=== PATIENT | male | born 1950 | race Caucasian/White ===

== ENCOUNTER → 2016-05-19 | Outpatient (CLI) | payer MEDICARE ==
[2016-01-13 11:00] VITALS: BP 137/89
[~2016-05-19] MED LIST: ASPI-482 PO; ASPI325T4 PO; FAMO20TA5 PO; FERR-26 PO; HYDR12.53 PO; IBUP-1027 PO; IOHEXOL 180 MG/ML 10 ML VIAL. ONE; ISOS10TA4 PO; METO25TA9 PO; MULT1TAB52 PO; Oxycodone Hcl/Acetaminophen PO; PROP150T2 PO; PROP225T2 PO; SIMV20TA3 PO; methylPREDNISolone ACETATE 40 MG/ML VIAL. ONE; methylPREDNISolone ACETATE 80 MG/ML VIAL. ONE
--- NOTE | 2016-05-20 01:26 | PAIN ---
DATE OF SERVICE: 05/19/2016 INITIAL CONSULTATION CHIEF COMPLAINT: Neck and bilateral shoulder and upper extremity pain. HISTORY OF PRESENT ILLNESS: The patient is a 65-year-old male, who presents with history of pain in the base of the neck and shoulders bilaterally for about 5 months or so, not a result of any specific injury or accident he is aware of, but it is increasing with time ____, constant pain across the base of the neck and shoulders causing headaches, radiating to bilateral shoulders and into the arms on occasion, but not at all times. The patient reports it is not ____. He has some tingling sensation, slightly more on the right than the left, but present bilaterally, most of the pain is in the base of the neck and shoulders was constant, sharp and aching, changes during the day, worse with activity, worse with standing or walking, worse with using his upper extremities or reaching over his head and again repetitive motions above his head as well. The patient reports it wakes him from sleep about once at night, but not every night. The patient reports it does not affect his bowel or bladder control or his ability to walk. He did try physical therapy, which he thought was not helpful with his neck. He is still doing some stretching exercises on his own, but only very infrequently. The patient reports no loss of motor function, but significant fatigability in the shoulders with any activity, especially drive a car. The patient reports disability rate from 0-10, 10 being the worst, 5 with family and home responsibilities, 3 with recreation, 3 with occupation, 4 with self-care, 0 with social activities, sexual behavior life support activities. The patient did have MRI scan of the cervical spine dated 05/02/2016 showing a congenitally moderate canal with disk space narrowing most marked at C4-C5, moderate posterior ridging and spurring causing moderate canal narrowing and mild cord deformity with mild to moderate bilateral neural foraminal narrowing at C4-C5 tiny disk osteophyte complex, essentially without cord deformity C3-C4 and congenitally moderate canal without lateralizing disk protrusions seen. PAST MEDICAL HISTORY: Significant for hypertension, atrial fibrillation, coronary artery disease, dizziness, headaches, peripheral neuropathy in the feet and arthritis. PREVIOUS SURGERY: Includes laparoscopic cholecystectomy and coronary artery bypass grafting in 12/2015. CURRENT MEDICATIONS: Include Advil, hydrochlorothiazide, multivitamins, metoprolol, propafenone, simvastatin and daily aspirin. ALLERGIES: THE PATIENT IS ALLERGIC TO CARDIZEM. FAMILY HISTORY: Significant for heart disease as well. SOCIAL HISTORY: The patient does not smoke, does not drink alcohol, is , lives with his spouse. No children living at home, lives locally in [place], [place]. REVIEW OF SYSTEMS: The patient's review of systems is positive for those items mentioned in history of present illness. All systems reviewed and otherwise negative. It is complete, full and well documented on the patient's chart. PHYSICAL EXAMINATION: VITAL SIGNS: The patient's blood pressure 133/77, pulse 58, respirations 18, temperature is 98.2 degrees Fahrenheit, height is 5 feet 10 inches, weighs 229 pounds. GENERAL: The patient is awake, alert, oriented, appropriate, very pleasant demeanor. HEENT: Head shows normocephalic, atraumatic. Extraocular movements are intact and symmetrical. Oral cavity shows mucous membranes moist and pink. Dentition is intact. NECK: Shows anterior throat supple without palpable lymphadenopathy noted. Swallow reflex is symmetrical. CHEST: Shows normal on inspection. Breath sounds clear to auscultation bilaterally, shows well-healed surgical scar in the midline from previous sternotomy. HEART: Shows S1, S2 clear. No murmurs auscultated. ABDOMEN: Soft, obese, nontender, nondistended. No palpable organomegaly noted. No new rebound or guarding demonstrated. BACK: Shows spine grossly midline. Normal appearing cervical lordotic curvature, thoracic kyphotic curvature, and lumbar lordotic curvature. No previous bruises, lesions, rashes or scars are noted. The patient's cervical paraspinous muscle shows some moderate tenderness with palpation in the middle and severe tenderness with the inferior aspect of the cervical paraspinous musculature with palpation bilaterally without specific trigger points or radiation, but significant pain and radiation bilaterally in the trapezius musculature centrally and laterally. The patient shows good rotational motion of cervical spine, both laterally greater than 45 degrees, close to 90 degrees well as full extension and full forward flexion without significant ____ limitation, but tender with extension only with pain reported in the base of the neck bilaterally. The patient's upper extremities showed deep tendon reflexes at 2+ in the biceps and triceps tendons. Motor exam is strong with regulatory analyst strength rated at 5/5 as is biceps and triceps flexion and symmetrical. Shoulder shrug is strong and intact without loss of strength on resistance, but with moderate pain reported in the base of the neck bilaterally also abduction of the shoulder to 90 degrees with resistance shows some pain reported in the base of the neck bilaterally as well. No radiation. IMPRESSION: 1. This is a 65-year-old male with approximately a 5-month history of increasing pain base of the neck, upper extremities and shoulders as noted. 2. MRI scan as noted. 3. History of coronary artery disease. 4. Atrial fibrillation. 5. Arthritis. PLAN: Options were discussed with the patient including conservative medical management, physical therapy, interventional techniques. He would like to pursue interventional techniques. We discussed a cervical epidural steroid injection using description as well as anatomical models to describe the procedure. Risks were then discussed including, but not limited to bleeding, infection, possibility of epidural hematoma, subsequent neurologic compromise, dural puncture, headaches, spinal cord and/or nerve damage, side effects of steroid medications and poor results regarding pain control. The patient understands and wishes to proceed. The patient will return to clinic in approximately 2 weeks for followup, was counseled on return appointment, activity level and side effects to be aware of. DIAGNOSES: Cervical radiculopathy with cervical degenerative disk disease and cervicalgia. PROCEDURE: Cervical epidural steroid injection in translaminar approach at the C6-C7 level using C-arm fluoroscopic guidance under sterile prep and drape, using local anesthetic. Medications injected is 120 mg of Depo-Medrol plus 5 mL preservative-free normal saline and 2 mL of Isovue for contrast. CONDITION AT DISCHARGE: Stable. The patient tolerated procedure well, had no complications. SD FLORES MD DR: RAMA/trini JOB#: [id number] / [id number]
== END ==
LOC: PNCL 09:09
PROVIDERS: ATTEND Anesthesiology
DX: M50.123 Cervical disc disorder at C6-C7 level with radiculopathy (principal); I25.10 Atherosclerotic heart disease of native coronary artery without angina pectoris; I48.91 Unspecified atrial fibrillation; M19.90 Unspecified osteoarthritis, unspecified site
CPT/HCPCS: 62321; J1030; J1040

== ENCOUNTER → 2016-06-02 | Outpatient (CLI) | payer MEDICARE ==
[2016-01-13 11:00] VITALS: BP 137/89
--- NOTE | 2016-06-02 20:42 | PN ---
DATE: 06/02/2016 DIAGNOSES: Cervical radiculopathy with cervical degenerative disk disease and cervicalgia. HISTORY OF PRESENT ILLNESS: The patient is a 65-year-old male who returns for followup status post cervical epidural steroid injection x 1. The patient reports about 10% improvement in the pain in the neck and in the bilateral shoulders and upper extremities. The patient reports the arms and shoulders are better, but still significant pain in the neck itself, more on the right of midline in the base of the neck, was a nagging dull aching pain that is constant. The patient reports anywhere from a 1 to a 6 on a scale 10, currently a 4 on a scale of 10. The patient reports no new motor or sensory deficits, no new problems, but still significant pain is noted. PHYSICAL EXAMINATION: VITAL SIGNS: The patient's blood pressure 124/70, pulse ____, respirations are 18, temperature is 98.0 degrees Fahrenheit. Height is 5 feet 10 inches, weighs 225 pounds. GENERAL: The patient is awake, alert, oriented, appropriate, very pleasant demeanor. HEENT: Head shows normocephalic, atraumatic. Extraocular movements are intact, symmetrical. Oral cavity, mucous membranes are moist and pink. Dentition is intact. NECK: Shows anterior throat supple without palpable lymphadenopathy noted. Swallow reflex is symmetrical. CHEST: Shows normal on inspection. Well healed midline surgical scars noted. Breath sounds clear to auscultation bilaterally. HEART: Shows S1 and S2 clear. ABDOMEN: Soft, nontender, and nondistended. No palpable organomegaly is noted. BACK: Shows spine grossly midline. Cervical lordotic curvature appears normal with this inspection and on palpation in the paraspinous musculature shows some moderate tenderness with palpation in the inferior aspect of the right side of the inferior cervical paraspinous musculature only diffusely without trigger points or radiation. No tenderness over the left side. Muscle girth is normal and firm bilaterally. The patient does show good rotation and motion of cervical spine, both laterally as well as extension and flexion without exacerbation of pain. EXTREMITIES: Upper extremities showed deep tendon reflexes 2+ in the biceps and triceps tendons. Motor exam is strong with 5/5 lining maker hand strength, biceps and triceps flexion and equal. Options were discussed with the patient and the patient's old chart was reviewed and his current medication regimen and updated. Current review of systems updated today as well. We will proceed with a cervical epidural steroid injection today with fluoroscopic guidance. Risks were again discussed including, but not limited to bleeding, infection, possibility of epidural hematoma, subsequent neurologic compromise, dural puncture, headaches, spinal cord and/or nerve damage, side effects of steroid medication and poor results regarding pain control. The patient understands and wishes to proceed. The patient will return to clinic in approximately 2 weeks for followup, was counseled on return appointment, activity level and side effects to be aware of. DIAGNOSIS: Cervical radiculopathy with cervical degenerative disk disease and cervicalgia. PROCEDURE: Cervical epidural steroid injection using C-arm fluoroscopic guidance under sterile prep and drape using local anesthetic medications at the C6-C7 level in translaminar approach using fluoroscopic guidance. MEDICATIONS INJECTED: Depo-Medrol 120 mg plus 5 mL of preservative-free normal saline and 2 mL of Isovue for contrast. CONDITION AT DISCHARGE: Stable. The patient tolerated procedure well, had no complications. SD FLORES MD DR: RAMA/trini JOB#: [id number] / [id number]
== END | disposition home or self-care (01) ==
LOC: PNCL 08:51
PROVIDERS: ATTEND Anesthesiology
DX: M50.123 Cervical disc disorder at C6-C7 level with radiculopathy (principal); E78.00 Pure hypercholesterolemia, unspecified; I48.91 Unspecified atrial fibrillation; I10 Essential (primary) hypertension; E66.9 Obesity, unspecified; M19.90 Unspecified osteoarthritis, unspecified site; Z90.49 Acquired absence of other specified parts of digestive tract
CPT/HCPCS: 62321; J1030; J1040

== ENCOUNTER → 2016-06-16 | Outpatient (CLI) | payer MEDICARE ==
[2016-01-13 11:00] VITALS: BP 137/89
[~2016-06-16] MED LIST changes: +LISI10TA2 PO
--- NOTE | 2016-06-16 23:34 | PAIN ---
DATE OF SERVICE: 06/16/2016 DIAGNOSES: Cervical radiculopathy with cervical degenerative disk disease and cervicalgia. HISTORY OF PRESENT ILLNESS: The patient is a 66-year-old male who returns for followup status post cervical epidural steroid injection x 2. The patient reports about 25% overall improvement, initially was about 50%, but is beginning to return the pain in the base of the neck and shoulders somewhat more in the left than the right, but fairly uniform. The patient reports it is an aching and sharp pain, also some tightness in the back of the neck. The patient reports it as 1 on a scale 10 currently, it can be as high as 6 on a scale of 10 with standing or walking or driving the car for prolonged period more than an hour or so. The patient reports he is sleeping well at night, does not awaken him from sleep. He reports no new motor or sensory deficits, no new changes or other complaints. PHYSICAL EXAMINATION: VITAL SIGNS: Today, the patient's blood pressure is 116/74, pulse 57, respirations are 18, temperature is 97.8 degrees Fahrenheit, height is 5 feet 10 inches, and weighs 236 pounds. GENERAL: The patient is awake, alert, oriented, appropriate, very pleasant demeanor. HEENT: Head shows normocephalic and atraumatic. Extraocular movements are intact and symmetrical. Oral cavity shows mucous membranes are moist and pink. Dentition is intact. NECK: Shows anterior throat supple without palpable lymphadenopathy noted. Swallow reflex is symmetrical. CHEST: Shows normal on inspection. Breath sounds are clear to auscultation bilaterally. HEART: Shows S1 and S2 clear. ABDOMEN: Soft, nontender, and nondistended. No palpable organomegaly noted. No rebound or guarding demonstrated. BACK: Shows spine grossly in midline. Neck shows posterior cervical musculature, which is moderately firm bilaterally in the superior, medial and inferior aspect of the cervical paraspinous muscles as well as into the superior medial and lateral trapezius, slightly more tender on the left than the right with palpation, but only diffusely without specific trigger points, without radiation or asymmetry. The patient shows good rotation and motion of cervical spine, both laterally greater than 45 degrees closer to 90 degrees as well as full extension and full forward flexion without any significant reproduction of pain. EXTREMITIES: Upper extremities showed deep tendon reflexes 2+ in the biceps and triceps tendons. Motor exam is strong with certified medical aide strength rated at 5/5 at his biceps and triceps flexion and equal. Options were discussed with the patient and the patient's old chart was reviewed as his current medication regimen and updated. Current review of systems updated today as well. We will proceed with a third in the series of cervical epidural steroid injection using fluoroscopic guidance. Risks were again discussed including, but not limited to bleeding, infection, possibility of epidural hematoma, subsequent neurologic compromise, dural puncture, headaches, spinal cord and/or nerve damage, side effects of steroid medication and poor results regarding pain control. The patient understands and wishes to proceed. The patient will return to clinic in approximately 2 weeks for followup, was counseled on return appointment, activity level and side effects to be aware of. DIAGNOSIS: Cervical radiculopathy with cervical degenerative disk disease and cervicalgia. PROCEDURE: Cervical epidural steroid injection in translaminar approach at C7 level using C-arm fluoroscopic guidance under sterile prep and drape and using local anesthetic. MEDICATIONS INJECTED: Depo-Medrol 120 mg plus 5 mL of preservative-free normal saline and 2 mL of Isovue for contrast. CONDITION AT DISCHARGE: Stable. The patient tolerated procedure well, had no complications. SD FLORES MD DR: RAMA/trini JOB#: [id number] / [id number]
== END | disposition home or self-care (01) ==
LOC: PNCL 08:05
PROVIDERS: ATTEND Anesthesiology
DX: M50.123 Cervical disc disorder at C6-C7 level with radiculopathy (principal); E78.00 Pure hypercholesterolemia, unspecified; I10 Essential (primary) hypertension; I48.91 Unspecified atrial fibrillation; E66.9 Obesity, unspecified; M19.90 Unspecified osteoarthritis, unspecified site; Z90.49 Acquired absence of other specified parts of digestive tract; Z87.39 Personal history of other diseases of the musculoskeletal system and connective tissue
CPT/HCPCS: 62321; J1030; J1040

== ENCOUNTER → 2017-12-28 | Outpatient (CLI) | payer MEDICARE ==
[2016-01-13 11:00] VITALS: BP 137/89
[~2017-12-28] MED LIST changes: -ASPI325T4 PO; +ASPI325T8 PO; -FERR-26 PO; +FERR325T14 PO; -IOHEXOL 180 MG/ML 10 ML VIAL. ONE; +METO-239 PO; -METO25TA9 PO; -methylPREDNISolone ACETATE 40 MG/ML VIAL. ONE; -methylPREDNISolone ACETATE 80 MG/ML VIAL. ONE
--- NOTE | 2017-12-28 14:29 | RAD ---
CHEST PA LATERAL dated 12/28/2017 12:00 AM. Comparison: 01/12/2016 Clinical Indication: LEFT SIDED CHEST PAIN WHEN COUGHING OR SNEEZING FOR A FEW DAYS. Findings: PA and lateral views obtained. Heart and mediastinal contours are stable. The patient is status post median sternotomy, unchanged. Lung volumes are low, limiting evaluation. Prominent perihilar linear markings, nonspecific. Lungs are otherwise clear. No consolidation or pleural effusion. Calcified granuloma left base. Impression: No acute radiographic abnormality. Stable findings compared to 01/12/2016. Electronically signed by: Laz Jacques MD (12/28/2017 2:26 PM) [id number]
== END | disposition home or self-care (01) ==
LOC: RAD 13:18
PROVIDERS: ATTEND Family Medicine
DX: R07.81 Pleurodynia (principal); Z98.890 Other specified postprocedural states
CPT/HCPCS: 71046

== ENCOUNTER 2018-01-08 10:00 | Emergency (ER) | payer MEDICARE ==
[~2018-01-08] VITALS: Ht 182.9 cm; Wt 116.1 kg
[2018-01-08] MEDS ORDERED: IV NORMAL SALINE 1000ML BAG 1,000 ML IV SCH (10:15)
[2018-01-08] MEDS ORDERED: ASPIRIN CHEWABLE 81 MG TABLET. PO ONE (10:15)
--- NOTE | 2018-01-08 10:20 | EKG ---
[facility] [address] [place] [address] Test Date: 2018-01-08 Test Time: 10:09:04 Pat Name: ADELSO HUDSON Department: Room: Gender: M Mva Reactor Operator: : 1950 Requested By: COY WHITE Order Number: [id number] Reading MD: Jacob Banda MD Measurements Intervals [place] Rate: 65 P: CA: QRS: 109 QRSD: 146 T: 55 QT: 428 QTc: 445 Interpretive Statements SR RBBB POOR R- WAVE PROGRESSION NON-SPECIFIC ST/T CHANGES Electronically Signed On 01-08-2018 14:33:14 PAPER PROCESSING MACHINE HELPER by Jacob Banda MD
[2018-01-08 10:36] LABS: BASO % 1 % (0-3); EOS # 0.9 x10^3/uL (0.0-0.7); EOS % 9 % (0-3); HEMATOCRIT 49.4 % (39.0-53.0); LYMPH # 2.1 x10^3/uL (1.0-4.8); LYMPH % 21 % (24-48); MEAN CORPUSCULAR HEMOGLOBIN 31 pg (25-35); MEAN CORPUSCULAR HGB CONC 35 g/dL (31-37); MEAN CORPUSCULAR VOLUME 90 fL (79-100); MONO # 0.7 x10^3/uL (0.0-1.1); MONO % 8 % (0-9); NEUT # 5.9 x10^3uL (1.8-7.7); NEUT % 61 % (31-73); PLATELET COUNT 257 x10^3/uL (140-400); RED BLOOD COUNT 5.48 x10^6/uL (4.30-5.70); RED CELL DISTRIBUTION WIDTH 13.1 % (11.5-14.5); WHITE BLOOD COUNT 9.7 x10^3/uL (4.0-11.0)
[2018-01-08 10:46] LABS: CALCIUM 9.4 mg/dL (8.5-10.1); CREATININE 1.3 mg/dL (0.7-1.3); GFR 55.1; POTASSIUM 4.9 mmol/L (3.5-5.1)
[2018-01-08 10:49] LABS: PROTHROMBIN TIME PATIENT 13.6 SEC (11.7-14.0)
[2018-01-08 10:52] LABS: ALBUMIN 3.8 g/dL (3.4-5.0); ALBUMIN/GLOBULIN RATIO 1.2 (1.0-1.7); MAGNESIUM 2.1 mg/dL (1.8-2.4); TOTAL BILIRUBIN 0.6 mg/dL (0.2-1.0)
--- NOTE | 2018-01-08 11:11 | RAD ---
PORTABLE CHEST 1V Clinical indications: LEFT SIDED CHEST PAIN X3 WEEKS. HX OF CABG COMPARISON: December 28, 2017. Findings: No acute lung infiltrate or pleural effusion or pulmonary edema or lung mass or pneumothorax is seen. A sternotomy is again evident. The heart size, pulmonary vasculature, mediastinum and both leeanne are unremarkable. Impression: No acute radiographic abnormality is seen. Electronically signed by: Eusebio Montesinos MD (01/08/2018 11:08 AM) [facility]
[2018-01-08 11:26] LABS: D-DIMER < 0.27 ug/mlFEU (0.00-0.50)
[2018-01-08 11:30] VITALS: BP 123/69
[2018-01-08] MEDS ORDERED: METH4TAB2 PO (12:31)
[2018-01-08] MEDS ORDERED: DICL50TA4 PO (12:31)
--- NOTE | 2018-01-08 12:32 | PHYS DOC ---
Past Medical History Past Medical History: A-Fib, CAD, High Cholesterol, Hypertension, Other Additional Past Medical Histor: peripheral neuropathy, nonmorbid obesity, afib w/ rvr Past Surgical History: Cholecystectomy, Other Additional Past Surgical Histo: cardiac stent Alcohol Use: None Drug Use: None Adult General Chief Complaint Chief Complaint: CHEST PAIN HPI HPI Patient is a 67-year-old male who presents with complaint of left-sided chest discomfort that has been present for the last 2 weeks and has been constant. He states that the level of pain varies. He indicates that at times the pain is sharp and stabbing and at other times it is like a dull pressure. He states that nothing seems to worsen the pain except for palpation. He states that ibuprofen does improve the pain somewhat. He denies any cough or shortness of breath. Patient also indicates that he has mid back pain. Patient denies any nausea, vomiting or diaphoresis. Review of Systems Review of Systems Constitutional: Denies fever or chills [] Respiratory: Denies cough or shortness of breath [] Cardiovascular: Complains of chest pain[] GI: Denies abdominal pain, nausea, vomiting or diarrhea [] Musculoskeletal: Complains of mid back pain[] Integument: Denies rash or skin lesions [] All other systems were reviewed and found to be within normal limits, except as documented in this note. Current Medications Current Medications Current Medications Medications (Trade) Dose Ordered Sig/Madyson Start Time Stop Time Status Last Admin Dose Admin Aspirin (Children'S Aspirin) 324 mg 1X ONCE 01/08/18 10:15 01/08/18 10:18 DC Sodium Chloride 1,000 ml @ 100 mls/hr Q10H 01/08/18 10:15 01/08/18 20:14 01/08/18 10:15 100 MLS/HR Allergies Allergies Allergies Coded Allergies Type Severity Reaction Last Updated Verified diltiazem Allergy Intermediate 01/08/16 Yes Physical Exam Physical Exam Constitutional: Well developed, well nourished, no acute distress, non-toxic appearance. [] HENT: Normocephalic, atraumatic, bilateral external ears normal, oropharynx moist, no oral exudates, nose normal. [] Eyes: PERRLA, EOMI, conjunctiva normal, no discharge. [] Neck: Normal range of motion, no tenderness, supple, no stridor. [] Cardiovascular: Regular rate and rhythm. There is reproducible chest wall tenderness along the left sternal border and the inferior margin on the left. [] Lungs & Thorax: Bilateral breath sounds clear to auscultation [] Abdomen: Bowel sounds normal, soft, no tenderness. [] Skin: Warm, dry, no erythema, no rash. [] Extremities: No tenderness, no cyanosis, no clubbing, ROM intact, no pitting edema. [] Neurologic: Alert and oriented X 3, normal motor function, normal sensory function, no focal deficits noted. [] Current Patient Data Vital Signs Vital Signs Date Time Temp Pulse Resp B/P (MAP) Pulse Ox O2 Delivery O2 Flow Rate FiO2 01/08/18 11:30 56 123/69 (87) 95 Room Air 01/08/18 10:14 98.4 22 98.4 Lab Values Laboratory Tests Test 01/08/18 10:25 White Blood Count 9.7 x10^3/uL (4.0-11.0) Red Blood Count 5.48 x10^6/uL (4.30-5.70) Hemoglobin 17.0 g/dL (13.0-17.5) Hematocrit 49.4 % (39.0-53.0) Mean Corpuscular Volume 90 fL (79-100) Mean Corpuscular Hemoglobin 31 pg (25-35) Mean Corpuscular Hemoglobin Concent 35 g/dL (31-37) Red Cell Distribution Width 13.1 % (11.5-14.5) Platelet Count 257 x10^3/uL (140-400) Neutrophils (%) (Auto) 61 % (31-73) Lymphocytes (%) (Auto) 21 % (24-48) L Monocytes (%) (Auto) 8 % (0-9) Eosinophils (%) (Auto) 9 % (0-3) H Basophils (%) (Auto) 1 % (0-3) Neutrophils # (Auto) 5.9 x10^3uL (1.8-7.7) Lymphocytes # (Auto) 2.1 x10^3/uL (1.0-4.8) Monocytes # (Auto) 0.7 x10^3/uL (0.0-1.1) Eosinophils # (Auto) 0.9 x10^3/uL (0.0-0.7) H Basophils # (Auto) 0.0 x10^3/uL (0.0-0.2) Prothrombin Time 13.6 SEC (11.7-14.0) Prothrombin Time INR 1.1 (0.8-1.1) D-Dimer (Gege) < 0.27 ug/mlFEU Sodium Level 139 mmol/L (136-145) Potassium Level 4.9 mmol/L (3.5-5.1) Chloride Level 101 mmol/L (98-107) Carbon Dioxide Level 33 mmol/L (21-32) H Anion Gap 5 (6-14) L Blood Urea Nitrogen 21 mg/dL (8-26) Creatinine 1.3 mg/dL (0.7-1.3) Estimated GFR (Cockcroft-Gault) 55.1 BUN/Creatinine Ratio 16 (6-20) Glucose Level 190 mg/dL (70-99) H Calcium Level 9.4 mg/dL (8.5-10.1) Magnesium Level 2.1 mg/dL (1.8-2.4) Total Bilirubin 0.6 mg/dL (0.2-1.0) Aspartate Amino Transferase (AST) 22 U/L (15-37) Alanine Aminotransferase (ALT) 46 U/L (16-63) Alkaline Phosphatase 38 U/L (46-116) L Troponin I Quantitative < 0.017 ng/mL (0.000-0.055) GO-Rwc-B-Type Natriuretic Peptide 138 pg/mL (0-124) H Total Protein 7.0 g/dL (6.4-8.2) Albumin 3.8 g/dL (3.4-5.0) Albumin/Globulin Ratio 1.2 (1.0-1.7) Laboratory Tests 01/08/18 10:25 Laboratory Tests 01/08/18 10:25 EKG EKG [] Interpretation Time: EKG demonstrates normal sinus rhythm with rate of 65. There is a nonspecific intraventricular conduction delay. Radiology/Procedures Radiology/Procedures [] Impressions: PORTABLE CHEST 1V Clinical indications: LEFT SIDED CHEST PAIN X3 WEEKS. HX OF CABG COMPARISON: December 28, 2017. Findings: No acute lung infiltrate or pleural effusion or pulmonary edema or lung mass or pneumothorax is seen. A sternotomy is again evident. The heart size, pulmonary vasculature, mediastinum and both leeanne are unremarkable. Impression: No acute radiographic abnormality is seen. Electronically signed by: Eusebio Montesinos MD (01/08/2018 11:08 AM) Course & Med Decision Making Course & Med Decision Making Pertinent Labs and Imaging studies reviewed. (See chart for details) [] Dragon Disclaimer Dragon Disclaimer This electronic medical record was generated, in whole or in part, using a voice recognition dictation system. Departure Departure Impression: Primary Impression: Chest wall pain Disposition: HOME, SELF-CARE Condition: STABLE Referrals: SHARONA BEARD MD (PCP) MICHI LOVELACE MD Patient Instructions: Costochondritis Scripts Diclofenac Sodium (DICLOFENAC SODIUM) 50 Mg Tablet.dr 1 TAB PO BID PRN for PAIN, #20 TAB Prov: COY WHITE Jr. DO 01/08/18 Methylprednisolone (MEDROL) 4 Mg Tab.ds.pk 1 PKG PO UD, #1 PKG Prov: COY WHITE Jr. DO 01/08/18 COY WHITE Jr. DO Jan 08, 2018 12:31
== END 2018-01-08 12:39 | disposition home or self-care (01) ==
LOC: ER 10:00
DX: R07.89 Other chest pain (principal); M54.6 Pain in thoracic spine; I48.91 Unspecified atrial fibrillation; E78.00 Pure hypercholesterolemia, unspecified; I10 Essential (primary) hypertension; I25.10 Atherosclerotic heart disease of native coronary artery without angina pectoris; Z95.5 Presence of coronary angioplasty implant and graft; Z88.8 Allergy status to other drugs, medicaments and biological substances
CPT/HCPCS: 36415; 71045; 80053; 83735; 83880; 84484; 85025; 85379; 85610; 93005; 99284; J7030

== ENCOUNTER → 2018-03-20 | Outpatient (CLI) | payer MEDICARE ==
[~2018-03-20] MED LIST changes: +DICL50TA4 PO; -HYDR12.53 PO; +HYDR12.575 PO; +METH4TAB2 PO
--- NOTE | 2018-03-20 09:06 | CARD ---
MR#: [id number] Date of Study: 03/20/2018 Ordering Physician: CYNDIE QUINTERO, Referring Physician: CYNDIE QUINTERO, Tech: Antonia Ramirez [facility] APPROVED REPORT EXAM: Two-dimensional and M-mode echocardiogram with Doppler and color Doppler. Other Information Quality : AverageHR: 60bpm Rhythm : NSR INDICATION CAD 2D DIMENSIONS RVDd2.9 (2.9-3.5cm)Left Atrium(2D)4.3 (1.6-4.0cm) IVSd1.2 (0.7-1.1cm)Aortic Root(2D)3.5 (2.0-3.7cm) LVDd5.1 (3.9-5.9cm)LVOT Diameter2.1 (1.8-2.4cm) PWd1.2 (0.7-1.1cm)LVDs3.7 (2.5-4.0cm) FS (%) 28.3 %SV68.5 ml LVEF(%)54.4 (>50%) M-Mode DIMENSIONS Left Atrium(MM)4.37 (2.5-4.0cm)Aortic Root3.44 (2.2-3.7cm) Aortic Valve AoV Peak Mata.111.5cm/sAoV VTI25.5cm AO Peak GR.5.0mmHgLVOT Peak Mata.87.1cm/s AO Mean GR.2mmHgAVA (VMAX)2.64cm2 AZUL (VTI)2.60cm2 Mitral Valve MV E Rhahscex13.6cm/sMV DECEL FRGB325tm MV A Qpdwepow13.9cm/sE/A Ratio2.1 MV A Qcjsueqq877jk Pulmonary Valve PV Peak Uyrtegde97.8cm/s Pulmonary Vein S1 Wvcblkjs91.4cm/sD2 Bmywplqd55.1cm/s PVa oebvboyi47fosq LEFT VENTRICLE The left ventricle is normal size. There is borderline to mild concentric left ventricular hypertroph y. The Ejection Fraction is 50-55%. Severe hypokinesis of mid to distal anteroseptal wall. Transmitra l Doppler flow pattern is Grade II-pseudonormal filling dynamics. RIGHT VENTRICLE The right ventricle is normal size. There is normal right ventricular wall thickness. The right ventr icular systolic function is normal. ATRIA The left atrium is mildly dilated. The right atrium size is normal. The interatrial septum is intact with no evidence for an atrial septal defect or patent foramen ovale as noted on 2-D or Doppler imagi ng. AORTIC VALVE The aortic valve is normal in structure and function. The aortic valve is trileaflet. Doppler and Col or Flow revealed no significant aortic regurgitation. There is no significant aortic valvular stenosi s. MITRAL VALVE The mitral valve is normal in structure and function. There is no evidence of mitral valve prolapse. There is no mitral valve stenosis. Doppler and Color-flow revealed trace mitral regurgitation. TRICUSPID VALVE The tricuspid valve is normal in structure and function. Doppler and Color Flow revealed trace tricus pid regurgitation. There is no tricuspid valve prolapse or vegetation. There is no tricuspid valve st enosis. PULMONIC VALVE The pulmonary valve is normal in structure and function. Doppler and Color Flow revealed no pulmonic valvular regurgitation. There is no pulmonic valvular stenosis. GREAT VESSELS The aortic root is normal in size. The ascending aorta is normal in size. The IVC is normal in size a nd collapses >50% with inspiration. PERICARDIAL EFFUSION There is no evidence of significant pericardial effusion. Critical Notification Critical Value: No <Conclusion> Severe hypokinesis of mid to distal anteroseptal wall. The Ejection Fraction is 50-55%. Trace mitral regurgitation. Trace tricuspid regurgitation. There is no evidence of significant pericardial effusion. Signed by : Tung Dover, Electronically Approved : 03/20/2018 09:04:24
--- NOTE | 2018-03-20 13:37 | RAD ---
MR#: [id number] Date of Study: 03/20/2018 Ordering Physician: CYNDIE QUINTERO, Referring Physician: NIKKY MAX Tech: RT Tyrell (R) (N) APPROVED REPORT Test Type: Exercise Stress Nurse/Tech: Sophia Escobedo Test Indications: CAD Cardiac History: CABG x4 bypass 12/2016, HTN Medications: See EMR Medical History: See EMR Resting ECG: SR w/ BBB Resting Heart Rate: 62 bpm Resting Blood Pressure: 125/71mmHg Pretest Chest Pain: No chest pain Nurse/Tech Notes Lungs CTA, Heart tones regular Consent: The procedure was explained to the patient in lay terms. Informed consent was witnessed. Seth eout was entered into [employer]. History and Stress Test performed by RT Shyla (R) (N) Stress Symptoms No chest pain or symptoms. POST EXERCISE Reason for Termination: Reached target heart rate Target HR: Yes Max HR: 139 bpm 105% of Maximum Predicted HR: 130 bpm Exercise duration: 7.04 min:sec, 3 Stage Exercise capacity: 10.0METs Max Blood Pressure: 185/89mmHg Blood Pressure response to exercise: Abnormal increase in blood pressure during stress. Heart Rate response to exercise: Increase Chest Pain: No. Arrhythmia: No. ST Change: No. INTERPRETATION Stress EKG Conclusion: Baseline EKG showed sinus rhythm, RBBB, old anterior infarct. No ischemic norma nges at peak stress. No arrhythmias. Imaging Protocol IMAGE PROTOCOL: Rest Tc-99m/stress Tc-99m 1 day Rest: Stress: Viability: Radiopharm.Tc99m WfmzdlbqiVn14d Sestamibi Dose10.1mCi 34.2mCi Duration 13min. 13min. Img Date 03/20/2018 03/20/2018 Inj-Img Rakl48coc. 60min. Rest Admin Site:IV - Right AntecubitalAdministrator:DEVANG Cabello, ARRT (R)(N) Stress Admin Site: IV - Right AntecubitalAdministrator: RT Js MansfieldR)(N) STRESS DATA End Diast. Vol.91.0mlLVEDV index BSA40.0ml End Syst. Vol.25.0mlLVESV index BSA11.0ml Myocardial Bwbx002.0gEject. Kbqixrcl17.0% Stress Scores Regional WT0.00Summed WT6.00 Regional WM0.00Summed WM3.00 LV Perfusion Scintigraphic images showed a large fixed defect involving the distal anterior wall and the entire ap ical wall consistent with previous myocardial infarction with very small amount of reversibility cons istent with chon-infarct ischemia. Wall Motion Apical wall hypokinesis with ejection fraction calculated at 73%. LV Perf. Quant 17 Seg. SSS9.00 17 Seg. SRS10.00 17 Seg. SDS1.00 Stress Defect Extent (% LAD)45.00Rest Defect Extent (% LAD)43.10Rev. Defect Extent (% LAD)16.90 Stress Defect Extent (% LCX) 0.00Rest Defect Extent (% LCX)5.00Rev. Defect Extent (% LCX)0.00 Stress Defect Extent (% RCA)0.00Rest Defect Extent (% RCA)0.00Rev. Defect Extent (% RCA)0.00 Stress Defect Extent (% NORRIS)22.00Rest Defect Extent (% NORRIS)22.40Rev. Defect Extent (% NORRIS)10.00 Conclusion 1. Treadmill exercise cardioisotope stress test showed large infarct involving the distal anterior wa ll and the entire apical wall with very small amount of chon-infarct ischemia. 2. Apical wall hypokinesis with ejection fraction calculated at 73%. 3. Low to intermediate risk for cardiac events. Signed by : Tung Dover, Electronically Approved : 03/20/2018 13:34:25
== END | disposition home or self-care (01) ==
LOC: ECHO 07:37
PROVIDERS: ATTEND Internal Medicine Cardiovascular Disease
DX: I25.10 Atherosclerotic heart disease of native coronary artery without angina pectoris (principal); I25.2 Old myocardial infarction; I25.89 Other forms of chronic ischemic heart disease
CPT/HCPCS: 78452; 93017; 93306; 96374; 96376; A9500

== ENCOUNTER 2018-11-06 20:32 | Inpatient (IN) | payer MEDICARE ==
[~2018-11-06] VITALS: Ht 177.8 cm; Wt 116.8 kg
[2018-11-06 21:08] LABS: BASO # 0.1 x10^3/uL (0.0-0.2); BASO % 1 % (0-3); EOS # 0.9 x10^3/uL (0.0-0.7); EOS % 9 % (0-3); HEMATOCRIT 48.6 % (39.0-53.0); HEMOGLOBIN 17.2 g/dL (13.0-17.5); LYMPH # 2.7 x10^3/uL (1.0-4.8); LYMPH % 25 % (24-48); MEAN CORPUSCULAR HEMOGLOBIN 32 pg (25-35); MEAN CORPUSCULAR HGB CONC 35 g/dL (31-37); MEAN CORPUSCULAR VOLUME 89 fL (79-100); MONO % 10 % (0-9); NEUT # 6.3 x10^3/uL (1.8-7.7); NEUT % 56 % (31-73); PLATELET COUNT 262 x10^3/uL (140-400); RED BLOOD COUNT 5.44 x10^6/uL (4.30-5.70); RED CELL DISTRIBUTION WIDTH 13.1 % (11.5-14.5); WHITE BLOOD COUNT 11.1 x10^3/uL (4.0-11.0)
--- NOTE | 2018-11-06 21:08 | PHYS DOC ---
Past Medical History Past Medical History: A-Fib, CAD, High Cholesterol, Hypertension, Other Additional Past Medical Histor: peripheral neuropathy, nonmorbid obesity, afib w/ rvr (JUNIOR LOBO CLIENT RESOLUTION SPECIALIST) Past Surgical History: Cholecystectomy, Other Additional Past Surgical Histo: cardiac stent (JUNIOR LOBO CLIENT RESOLUTION SPECIALIST) Alcohol Use: None Drug Use: None (JUNIOR LOBO APRN) Adult General Chief Complaint Chief Complaint: CHEST PAIN-CARDIAC NATURE HPI HPI Patient is a 68 year old male who presents with 30 minutes prior to arrival started having mid dull chest pain and palpitations. Patient states that he has a history of A. fib and he felt like his heart went out of rhythm. Patient states at he now doesn't have much pain and does not have any shortness of air. Patient states that he feels like "my heart has settled down now". Patient de nies any pain at this time. Patient did not take any aspirin before arrival. Patient states he sees Dr. Banda and had been on medicine for his A. fib in the past but had been taken off about a year ago. (JUNIOR LOBO CLIENT RESOLUTION SPECIALIST) Review of Systems Review of Systems Respiratory: Denies cough. +shortness of breath [] Cardiovascular:Mid chest pain and palpitations All other systems were reviewed and found to be within normal limits, except as documented in this note. (JUNIOR LOBO CLIENT RESOLUTION SPECIALIST) Allergies Allergies Allergies Coded Allergies Type Severity Reaction Last Updated Verified diltiazem Allergy Intermediate 01/08/16 Yes (THEA PENG MD) Physical Exam Physical Exam Constitutional: Well developed, well nourished, no acute distress, non-toxic appearance. [] Cardiovascular: A. fib with RVR, no murmur [] Lungs & Thorax: Bilateral breath sounds clear to auscultation [] Skin: Warm, dry, no erythema, no rash. [] Extremities: No tenderness, no cyanosis, no clubbing, ROM intact, no edema. [] Neurologic: Alert and oriented X 3, normal motor function, normal sensory function, no focal deficits noted. [] Psychologic: Affect normal, judgement normal, mood normal. [] (JUNIOR LOBO CLIENT RESOLUTION SPECIALIST) Current Patient Data Vital Signs Vital Signs Date Time Temp Pulse Resp B/P (MAP) Pulse Ox O2 Delivery O2 Flow Rate FiO2 11/06/18 20:35 98.1 112 22 165/88 (113) 95 Room Air 98.1 (THEA PENG MD) Lab Values Laboratory Tests Test 11/06/18 20:45 White Blood Count 11.1 x10^3/uL (4.0-11.0) H Red Blood Count 5.44 x10^6/uL (4.30-5.70) Hemoglobin 17.2 g/dL (13.0-17.5) Hematocrit 48.6 % (39.0-53.0) Mean Corpuscular Volume 89 fL (79-100) Mean Corpuscular Hemoglobin 32 pg (25-35) Mean Corpuscular Hemoglobin Concent 35 g/dL (31-37) Red Cell Distribution Width 13.1 % (11.5-14.5) Platelet Count 262 x10^3/uL (140-400) Neutrophils (%) (Auto) 56 % (31-73) Lymphocytes (%) (Auto) 25 % (24-48) Monocytes (%) (Auto) 10 % (0-9) H Eosinophils (%) (Auto) 9 % (0-3) H Basophils (%) (Auto) 1 % (0-3) Neutrophils # (Auto) 6.3 x10^3/uL (1.8-7.7) Lymphocytes # (Auto) 2.7 x10^3/uL (1.0-4.8) Monocytes # (Auto) 1.0 x10^3/uL (0.0-1.1) Eosinophils # (Auto) 0.9 x10^3/uL (0.0-0.7) H Basophils # (Auto) 0.1 x10^3/uL (0.0-0.2) Sodium Level 139 mmol/L (136-145) Potassium Level 3.9 mmol/L (3.5-5.1) Chloride Level 104 mmol/L (98-107) Carbon Dioxide Level 29 mmol/L (21-32) Anion Gap 6 (6-14) Blood Urea Nitrogen 21 mg/dL (8-26) Creatinine 1.1 mg/dL (0.7-1.3) Estimated GFR (Cockcroft-Gault) 66.6 BUN/Creatinine Ratio 19 (6-20) Glucose Level 186 mg/dL (70-99) H Calcium Level 9.2 mg/dL (8.5-10.1) Total Bilirubin 0.6 mg/dL (0.2-1.0) Aspartate Amino Transferase (AST) 31 U/L (15-37) Alanine Aminotransferase (ALT) 44 U/L (16-63) Alkaline Phosphatase 43 U/L (46-116) L Troponin I Quantitative < 0.017 ng/mL (0.000-0.055) Total Protein 6.9 g/dL (6.4-8.2) Albumin 3.8 g/dL (3.4-5.0) Albumin/Globulin Ratio 1.2 (1.0-1.7) Laboratory Tests 11/06/18 20:45 Laboratory Tests 11/06/18 20:45 (THEA PENG MD) Lab Values Laboratory Tests Test 11/06/18 20:45 White Blood Count 11.1 x10^3/uL (4.0-11.0) H Red Blood Count 5.44 x10^6/uL (4.30-5.70) Hemoglobin 17.2 g/dL (13.0-17.5) Hematocrit 48.6 % (39.0-53.0) Mean Corpuscular Volume 89 fL (79-100) Mean Corpuscular Hemoglobin 32 pg (25-35) Mean Corpuscular Hemoglobin Concent 35 g/dL (31-37) Red Cell Distribution Width 13.1 % (11.5-14.5) Platelet Count 262 x10^3/uL (140-400) Neutrophils (%) (Auto) 56 % (31-73) Lymphocytes (%) (Auto) 25 % (24-48) Monocytes (%) (Auto) 10 % (0-9) H Eosinophils (%) (Auto) 9 % (0-3) H Basophils (%) (Auto) 1 % (0-3) Neutrophils # (Auto) 6.3 x10^3/uL (1.8-7.7) Lymphocytes # (Auto) 2.7 x10^3/uL (1.0-4.8) Monocytes # (Auto) 1.0 x10^3/uL (0.0-1.1) Eosinophils # (Auto) 0.9 x10^3/uL (0.0-0.7) H Basophils # (Auto) 0.1 x10^3/uL (0.0-0.2) Sodium Level 139 mmol/L (136-145) Potassium Level 3.9 mmol/L (3.5-5.1) Chloride Level 104 mmol/L (98-107) Carbon Dioxide Level 29 mmol/L (21-32) Anion Gap 6 (6-14) Blood Urea Nitrogen 21 mg/dL (8-26) Creatinine 1.1 mg/dL (0.7-1.3) Estimated GFR (Cockcroft-Gault) 66.6 BUN/Creatinine Ratio 19 (6-20) Glucose Level 186 mg/dL (70-99) H Calcium Level 9.2 mg/dL (8.5-10.1) Total Bilirubin 0.6 mg/dL (0.2-1.0) Aspartate Amino Transferase (AST) 31 U/L (15-37) Alanine Aminotransferase (ALT) 44 U/L (16-63) Alkaline Phosphatase 43 U/L (46-116) L Troponin I Quantitative < 0.017 ng/mL (0.000-0.055) Total Protein 6.9 g/dL (6.4-8.2) Albumin 3.8 g/dL (3.4-5.0) Albumin/Globulin Ratio 1.2 (1.0-1.7) Laboratory Tests 11/06/18 20:45 Laboratory Tests 11/06/18 20:45 (JUNIOR LOBO APRN) EKG EKG AFIB RVR[ AFTER AMIODARONE BOLUS: SINUS RYTHM Interpretation Time: [address] Peng [address] Peng (JUNIOR LOBO APRN) Radiology/Procedures Radiology/Procedures [] (JUNIOR LOBO APRN) Course & Med Decision Making Course & Med Decision Making Patient is a 68 year old male who presents with 30 minutes prior to arrival started having mid dull chest pain and palpitations. Patient states that he has a history of A. fib and he felt like his heart went out of rhythm. Patient states at he now doesn't have much pain and does not have any shortness of air. Patient states that he feels like "my heart has settled down now". Patient denies any pain at this time. Patient did not take any aspirin before arrival. P atient states he sees Dr. Banda and had been on medicine for his A. fib in the past but had been taken off about a year ago. He shouldn't has a history of a CABG, A. fib and hypertension, high cholesterol, CAD. EKG shows A. fib with RVR. Patient is allergic to diltiazem so amiodarone is ordered. Patient is given aspirin. No extremity edema is seen. Lungs are clear patient lobes. Patient is alert and oriented. Ambulatory with a steady gait. Skin is pink warm and dry. Speaks in full clear sentences. Patient at this time denies any chest pain, shortness of air, abdominal pain, nausea, vomiting, dizziness, syncope, numbness or tingling, headache, visual changes, weaknesses. After amiodarone bolus given patient converted to sinus rhythm. Chest xray read by Dr Peng and there are no obvious acute findings. I have spoken to Dr Beard and the patient is admitted. (JUNIOR LOBO APRN) Dragon Disclaimer Dragon Disclaimer This electronic medical record was generated, in whole or in part, using a voice recognition dictation system. (JUNIOR LOBO APRN) The HEART Score for CP Pts HEART Score for Chest Pain: HEART Score for Chest Pain Response (Comments) Value History Slighlty/Non-Suspicious 0 ECG Normal (AFIB RVR) 0 Age > 65 2 Risk Factors >3 Risk Factors or Hx CAD 2 Troponin < Normal Limit 0 Total 4 Risk Factors: Risk Factors: DM, Current or recent (<one month) smoker, HTN, HLP, family history of CAD, obesity. Risk Scores: Score 0 - 3: 2.5% MACE over next 6 weeks - Discharge Home Score 4 - 6: 20.3% MACE over next 6 weeks - Admit for Clinical Observation Score 7 - 10: 72.7% MACE over next 6 weeks - Early Invasive Strategies (JUNIOR LOBO APRN) Departure Departure Impression: Primary Impression: Atrial fibrillation with rapid ventricular response Disposition: ADMITTED INPATIENT Admitting Physician: Myles Beard (JUNIOR LOBO APRN) Condition: STABLE Referrals: MYLES BEARD MD (PCP) Attending Signature I have participated in the care of this patient and I have reviewed and agree with all pertinent clinical information above including history, exam, and recommendations. (THEA PENG MD) JUNIOR LOBO APRN Nov 06, 2018 21:08 THEA PENG MD Nov 07, 2018 04:48
[2018-11-06 21:18] LABS: CALCIUM 9.2 mg/dL (8.5-10.1); CREATININE 1.1 mg/dL (0.7-1.3); GFR 66.6; POTASSIUM 3.9 mmol/L (3.5-5.1)
[2018-11-06 21:24] LABS: ALBUMIN 3.8 g/dL (3.4-5.0); ALBUMIN/GLOBULIN RATIO 1.2 (1.0-1.7); TOTAL BILIRUBIN 0.6 mg/dL (0.2-1.0); TOTAL PROTEIN 6.9 g/dL (6.4-8.2)
[2018-11-06] MEDS ORDERED: ASPIRIN 325 MG TABLET PO ONE (21:30)
[2018-11-06] MEDS ORDERED: AMIODARONE 150 MG in IV DEXTROSE 5% 100ML 100 ML IV ONE (21:30)
[2018-11-06] MEDS ORDERED: fentaNYL PF VIAL 100 MCG/2 ML VIAL IV PRN (22:00)
[2018-11-06] MEDS ORDERED: ACETAMINOPHEN 325 MG TABLET. PO PRN (22:00)
[2018-11-06] MEDS ORDERED: NITROGLYCERIN SUBLINGUAL 0.4 MG BOTTLE OF 25. SL PRN (22:00)
[2018-11-06] MEDS ORDERED: ONDANSETRON PF 4 MG/2 ML VIAL. IV PRN (22:00)
[2018-11-06 22:50] VITALS: BP 125/73
--- NOTE | 2018-11-06 23:00 | NUR ---
Pt was admitted for AFIB RVR, pt stated feeling palpitations at home at came to the ER. Pt received a 150mg IV bolus of amiodorone in the ER and converted to SR. Pt is SR/1 degree block on telemetry, VSS, no c/o pain. jerrica is at bedside, H&P completed, med rec completed, bed in low, locked position, call light within reach. Will continue to monitor for status changes.
[2018-11-06] MEDS ORDERED: ASPI-612 PO (23:31)
[2018-11-06] MEDS ORDERED: LISI-338 PO (23:31)
--- NOTE | 2018-11-06 23:55 | RAD ---
Examination: PORTABLE CHEST 1V History: Chest pain Comparison/Correlation: 01/08/2018 portable chest Findings: Portable upright frontal view chest was obtained. Sternal wires are present ascites and pulmonary vasculature are normal. No infiltrate or pleural effusion. Calcified granuloma involves the left lower lung field. No pneumothorax. Impression: No active disease Electronically signed by: Peter Tavarez MD (11/06/2018 11:52 PM) [facility]
[2018-11-07 02:50] VITALS: BP 115/67
--- NOTE | 2018-11-07 06:20 | EKG ---
[facility] [address] [place] [address] Test Date: 2018-11-06 Test Time: 21:58:12 Pat Name: ADELSO ADAMS Department: Room: Gender: M Principal Secretary: : 1950 Requested By: JUNIOR LOBO Order Number: [id number] Reading MD: Measurements Intervals [place] Rate: 69 P: 50 MO: 192 QRS: 97 QRSD: 132 T: 64 QT: 412 QTc: 447 Interpretive Statements SINUS RHYTHM RIGHTWARD AXIS NON SPECIFIC INTRAVENTRICULAR BLOCK RVH WITH REPOLARIZATION ABNORMALITY QRS(T) CONTOUR ABNORMALITY CONSISTENT WITH ANTERIOR INFARCT AGE UNDETERMINED ABNORMAL ECG No previous ECG available for comparison
[2018-11-07 07:25] VITALS: BP 121/76
[2018-11-07] MEDS ORDERED: oxyCODONE/APAP 5/325 1 TAB TABLET PO PRN (09:00)
[2018-11-07] MEDS ORDERED: MULTIVITAMIN with MINERAL TABLET. PO SCH (09:00)
[2018-11-07] MEDS ORDERED: ASPIRIN ENTERIC COATED 81 MG TABLET.DR. PO SCH (09:00)
[2018-11-07] MEDS ORDERED: hydroCHLOROthiazide 25 MG TABLET PO SCH (09:00)
[2018-11-07] MEDS ORDERED: LISINOPRIL 5 MG TABLET. PO SCH ×2 (09:00→12:00)
--- NOTE | 2018-11-07 09:02 | PDOC ---
Provider Note Provider Note [id number] SHARONA BEARD MD Nov 07, 2018 09:02
[2018-11-07 10:03] LABS: CHOLESTEROL/HDL RATIO 4.3
[2018-11-07 10:11] VITALS: BP 129/76
--- NOTE | 2018-11-07 11:32 | CARD ---
MR#: [id number] Date of Study: 11/07/2018 Ordering Physician: FRANCISCO CUENCA, Referring Physician: FRANCISCO CUENCA, Tech: Antonia Ramirez RDCS APPROVED REPORT EXAM: Two-dimensional and M-mode echocardiogram with Doppler and color Doppler. Other Information Quality : AverageHR: 65bpm Rhythm : NSR INDICATION Atrial Fibrillation Surgery/Intervention CABG: Date: 2015 2D DIMENSIONS RVDd3.1 (2.9-3.5cm)Left Atrium(2D)4.1 (1.6-4.0cm) IVSd1.2 (0.7-1.1cm)Aortic Root(2D)3.4 (2.0-3.7cm) LVDd5.6 (3.9-5.9cm)LVOT Diameter2.2 (1.8-2.4cm) PWd1.4 (0.7-1.1cm)LVDs4.1 (2.5-4.0cm) FS (%) 27.1 %SV80.2 ml LVEF(%)52.2 (>50%) M-Mode DIMENSIONS Left Atrium(MM)4.45 (2.5-4.0cm)Aortic Root3.48 (2.2-3.7cm) Aortic Valve AoV Peak Mata.126.1cm/sAoV VTI29.3cm AO Peak GR.6.4mmHgLVOT Peak Mata.83.1cm/s AO Mean GR.4mmHgAVA (VMAX)2.42cm2 AZUL (VTI)2.40cm2 Mitral Valve MV E Viuwqere297.4cm/sMV DECEL TXLE907wj MV A Ujyzovby23.3cm/sE/A Ratio2.3 Pulmonary Valve PV Peak Fxcsxupj67.1cm/s Pulmonary Vein S1 Qaippfqs26.0cm/sD2 Fadsjkar20.0cm/s LEFT VENTRICLE The left ventricle is normal size. There is mild concentric left ventricular hypertrophy. Left ventri stewart systolic function is low normal. The Ejection Fraction is 50-55%. The mid to distal septum is mod erately hypokinetic. Transmitral Doppler flow pattern is Grade III-reversible restrictive diastolic d ysfunction. RIGHT VENTRICLE The right ventricle is normal size. There is normal right ventricular wall thickness. The right ventr icular systolic function is normal. ATRIA The left atrium is mildly dilated. The right atrium size is normal. The interatrial septum is intact with no evidence for an atrial septal defect or patent foramen ovale as noted on 2-D or Doppler imagi ng. AORTIC VALVE The aortic valve is normal in structure and function. The aortic valve is trileaflet. Doppler and Col or Flow revealed no significant aortic regurgitation. There is no significant aortic valvular stenosi s. There is no aortic valvular vegetation. MITRAL VALVE The mitral valve is normal in structure and function. There is no evidence of mitral valve prolapse. There is no mitral valve stenosis. Doppler and Color-flow revealed trace mitral regurgitation. TRICUSPID VALVE The tricuspid valve is normal in structure and function. Doppler and Color Flow revealed trace tricus pid regurgitation. There is no tricuspid valve prolapse or vegetation. There is no tricuspid valve st enosis. PULMONIC VALVE The pulmonic valve is not well visualized. GREAT VESSELS The aortic root is normal in size. The ascending aorta is normal in size. The IVC is normal in size a nd collapses >50% with inspiration. PERICARDIAL EFFUSION There is no evidence of significant pericardial effusion. Critical Notification Critical Value: No <Conclusion> Left ventricle systolic function is low normal. The Ejection Fraction is 50-55%. The mid to distal septum is moderately hypokinetic. Transmitral Doppler flow pattern is Grade III-reversible restrictive diastolic dysfunction. Signed by : Jacob Banda, Electronically Approved : 11/07/2018 11:31:41
--- NOTE | 2018-11-07 13:55 | PDOC2 ---
[facility] 11/07/18 1355: CARDIAC CONSULT DATE OF CONSULT Date of Consult DATE: 11/07/18 TIME: 0910 REASON FOR CONSULT Reason for Consult: AFIB RVR REFERRING PHYSICIAN Referring Physician: Sol SOURCE Source: Chart review, Patient HISTORY OF PRESENT ILLNESS HISTORY OF PRESENT ILLNESS This is a pleasant 68 yo male admitted for complains of fast heart rate. Reports that since yesterday he has been having sensation of his heart being fast. He went to ED and noted himself with HR in the 130-140s. Denies any SOA. Denies any chest pain. He walks about 2 miles at a time and no symptoms of exertional CP nor MEJIAS. Positive for snoring, no morning THOMPSON and denies daytime somnolence. Denies any hx of JONO. Positive for CAD with CABG in 2015. He did have a stress test and echo early this yr and did show abnormal wall motion with preserved EF and did not want any cardiac cath at this time in reference to his good activity tolerance and continue to pursue medical therapy at the moment. He has a hx of PAFIB and his rythmol was discontinued in 02/2018 due to his CAD. Also with his CABG he did have cryo ablation as well. He had a recent MCOT which did not show AFIB. He is currently on metoprolol and would not be able to increase due to HR bradying sometimes in the mid 40s. He denies any frequent dizziness or any episodes of passing out. PAST MEDICAL HISTORY Cardiovascular: AFIB, CAD, HTN, Hyperlipidemia Pulmonary: No pertinent hx CENTRAL NERVOUS SYSTEM: Other (No pertinent history) GI: No pertinent hx Heme/Onc: No pertinent hx Hepatobiliary: No pertinent hx Psych: No pertinent hx Musculoskeletal: Osteoarthritis Rheumatologic: No pertinent hx Infectious disease: No pertinent hx ENT: No pertinent hx Renal/: No pertinent hx Endocrine: No pertinent hx Dermatology: No pertinent hx PAST SURGICAL HISTORY Past Surgical History: Cholecystectomy, CABG (x4) FAMILY HISTORY Family History: Heart Disease (brother and father) SOCIAL HISTORY Smoke: Quit (remotely) ALCOHOL: none Drugs: None Lives: with Family CURRENT MEDICATIONS CURRENT MEDICATIONS Current Medications Medications (Trade) Dose Ordered Sig/Madyson Route PRN Reason Start Time Stop Time Status Last Admin Dose Admin Aspirin (Roxana Aspirin) 325 mg 1X ONCE PO 11/06/18 21:30 11/06/18 21:31 DC 9/17/19 21:08 Amiodarone HCl 150 mg/Dextrose 103 ml @ 400 mls/hr 1X ONCE IV 11/06/18 21:30 11/06/18 21:45 DC 11/06/18 21:29 Aspirin (Ecotrin) 81 mg DAILY PO 11/07/18 09:00 11/07/18 09:05 Hydrochlorothiazide (Hydrodiuril) 25 mg DAILY PO 11/07/18 09:00 11/07/18 09:05 Multivitamins (Thera M Plus) 1 tab DAILY PO 11/07/18 09:00 11/07/18 09:05 Lisinopril (Prinivil) 5 mg DAILY@1200 PO 11/07/18 12:00 11/07/18 12:46 ALLERGIES ALLERGIES: Coded Allergies: diltiazem (Verified Allergy, Intermediate, 01/08/16) ROS Review of System 14 point ROS evaluated with pertinent positives noted per HPI PHYSICAL EXAM General: Alert, Oriented X3, Cooperative, No acute distress HEENT: Atraumatic, Mucous membr. moist/pink Lungs: Clear to auscultation, Normal air movement Heart: Regular rate (SR), Normal S1, Normal S2 Abdomen: Soft, No tenderness Extremities: No cyanosis, No edema Skin: No breakdown, No significant lesion Neuro: Normal speech, Sensation intact Psych/Mental Status: Mental status NL, Mood NL MUSCULOSKELETAL: Osteoarthritic changes both hands VITALS/I&O VITALS/I&O: Vital Signs Date Time Temp Pulse Resp B/P (MAP) Pulse Ox O2 Delivery O2 Flow Rate FiO2 11/07/18 12:46 62 129/76 11/07/18 10:11 97.7 20 97 Room Air 97.7 I & O 11/06/18 11/06/18 11/07/18 15:00 23:00 07:00 Intake Total 103 ml 200 ml Balance 103 ml 200 ml LABS Lab: Laboratory Tests Test 11/06/18 20:45 11/07/18 00:50 11/07/18 05:00 11/07/18 10:09 White Blood Count 11.1 x10^3/uL (4.0-11.0) H Red Blood Count 5.44 x10^6/uL (4.30-5.70) Hemoglobin 17.2 g/dL (13.0-17.5) Hematocrit 48.6 % (39.0-53.0) Mean Corpuscular Volume 89 fL (79-100) Mean Corpuscular Hemoglobin 32 pg (25-35) Mean Corpuscular Hemoglobin Concent 35 g/dL (31-37) Red Cell Distribution Width 13.1 % (11.5-14.5) Platelet Count 262 x10^3/uL (140-400) Neutrophils (%) (Auto) 56 % (31-73) Lymphocytes (%) (Auto) 25 % (24-48) Monocytes (%) (Auto) 10 % (0-9) H Eosinophils (%) (Auto) 9 % (0-3) H Basophils (%) (Auto) 1 % (0-3) Neutrophils # (Auto) 6.3 x10^3/uL (1.8-7.7) Lymphocytes # (Auto) 2.7 x10^3/uL (1.0-4.8) Monocytes # (Auto) 1.0 x10^3/uL (0.0-1.1) Eosinophils # (Auto) 0.9 x10^3/uL (0.0-0.7) H Basophils # (Auto) 0.1 x10^3/uL (0.0-0.2) Sodium Level 139 mmol/L (136-145) Potassium Level 3.9 mmol/L (3.5-5.1) Chloride Level 104 mmol/L (98-107) Carbon Dioxide Level 29 mmol/L (21-32) Anion Gap 6 (6-14) Blood Urea Nitrogen 21 mg/dL (8-26) Creatinine 1.1 mg/dL (0.7-1.3) Estimated GFR (Cockcroft-Gault) 66.6 BUN/Creatinine Ratio 19 (6-20) Glucose Level 186 mg/dL (70-99) H Calcium Level 9.2 mg/dL (8.5-10.1) Total Bilirubin 0.6 mg/dL (0.2-1.0) Aspartate Amino Transferase (AST) 31 U/L (15-37) Alanine Aminotransferase (ALT) 44 U/L (16-63) Alkaline Phosphatase 43 U/L (46-116) L Troponin I Quantitative < 0.017 ng/mL (0.000-0.055) 0.023 ng/mL (0.000-0.055) < 0.017 ng/mL (0.000-0.055) Total Protein 6.9 g/dL (6.4-8.2) Albumin 3.8 g/dL (3.4-5.0) Albumin/Globulin Ratio 1.2 (1.0-1.7) Triglycerides Level 129 mg/dL (0-150) Cholesterol Level 126 mg/dL (0-200) LDL Cholesterol, Calculated 71 mg/dL (0-100) VLDL Cholesterol, Calculated 26 mg/dL (0-40) Non-HDL Cholesterol Calculated 97 mg/dL (0-129) HDL Cholesterol 29 mg/dL (40-60) L Cholesterol/HDL Ratio 4.3 Thyroid Stimulating Hormone (TSH) 1.884 uIU/mL (0.358-3.74) Laboratory Tests 11/06/18 20:45 Laboratory Tests 11/06/18 20:45 ECHOCARDIOGRAM ECHOCARDIOGRAM <Conclusion> Left ventricle systolic function is low normal. The Ejection Fraction is 50-55%. The mid to distal septum is moderately hypokinetic. Transmitral Doppler flow pattern is Grade III-reversible restrictive diastolic dysfunction. DATE: 11/07/18 1058 STRESS TEST STRESS TEST Conclusion 1. Treadmill exercise cardioisotope stress test showed large infarct involving the distal anterior wall and the entire apical wall with very small amount of chon-infarct ischemia. 2. Apical wall hypokinesis with ejection fraction calculated at 73%. 3. Low to intermediate risk for cardiac events. DATE: 03/20/18 1334 ASSESSMENT/PLAN ASSESSMENT/PLAN 1. AFIB RVR: paroxysmal by hx. Currently SR, converted to SR with amiodarone bolus 2. CAD: S/P CABG x4 12/2015, clinically stable 3. HTN: controlled 4. HLP 5. Obesity 6. Possible new DM2: posprandial BG >180s 7. Chronic RBBB Recommendations 1. A1C, TSH, lipids and TTE 2. Continue 81 mg ASA. [id number] is 4. Will need eliquis for stroke prevention, risks and benefits discussed and if agreeable to will initiate otherwise will intensify ASA 3. Continue with lopressor and would not be able to titrate up due to bradycardia. Could start on Multaq if pt is agreeable depending on ins coverage otherwise will consider for amiodarone. 4. Would benefit from JONO workup. 5. Also consideration for EP referral. CYNDIE QUINTERO MD 11/07/18 1070: CARDIAC CONSULT ASSESSMENT/PLAN ASSESSMENT/PLAN Pt. seen and examined. Agree with above [employer] note. Will continue metoprolol 12.5mg bid, start amiodarone. Previously he was on propafenone and his CAD would be contraindication Low afib burden, ok with not being on anticoagulation. [facility] Nov 07, 2018 13:55 CYNDIE QIUNTERO MD Nov 07, 2018 17:54
[2018-11-07] MEDS ORDERED: METOPROLOL SUCC 24HR ER 25 MG TAB.ER.24H. PO SCH (14:00)
--- NOTE | 2018-11-07 14:59 | NUR ---
SS following for discharge planning. SS reviewed pt chart. Pt is from home with spouse and is currently on room air. No discharge needs noted at this time. SS will continue to follow for discharge planning.
[2018-11-07 15:25] VITALS: BP 124/69
[2018-11-07] MEDS ORDERED: AMIODARONE HCL 200 MG TABLET. PO ONE (15:30)
[2018-11-07 17:04] VITALS: BP 124/69
[2018-11-07] MEDS ORDERED: AMIO200T4 PO ×2 (17:40→17:41)
[2018-11-07] MEDS ORDERED: ASPI325T8 PO (17:40)
[2018-11-07] MEDS ORDERED: METO25TA4 PO (17:41)
[2018-11-07] MEDS ORDERED: HYDR12.575 PO (17:42)
--- NOTE | 2018-11-07 18:27 | NUR ---
Discharge Note: ADELSO ADAMS Discharge instructions and discharge home medications reviewed with Patient and a copy given. All questions have been answered and understanding verbalized.
[2018-11-07] MEDS ORDERED: SIMVASTATIN 20 MG TABLET PO SCH (21:00)
[2018-11-08 04:08] LABS: HEMOGLOBIN A1C 6.8 % (4.8-5.6)
[2018-11-08] MEDS ORDERED: ASPIRIN 325 MG TABLET PO SCH (08:00)
--- NOTE | 2018-11-08 08:10 | PDOC ---
Provider Note Provider Note [id number] SHARONA BEARD MD Nov 08, 2018 08:10
[2018-11-08] MEDS ORDERED: hydroCHLOROthiazide 12.5 MG CAPSULE PO SCH (09:00)
--- NOTE | 2018-11-08 09:21 | HP ---
ADMIT DATE: CHIEF COMPLAINT: Atrial fibrillation. HISTORY OF PRESENT ILLNESS: A 68-year-old white male who has had a previous history of paroxysmal atrial fibrillation, has been off of propafenone for about 10 months and has had no further problems until the onset of rapid heartbeat and some chest discomfort at home. He came in, in RVR and was given amiodarone IV and has improved and resolved. His sinus rhythm has remained there since then without further medication. He has not had any anginal symptoms or new symptoms lately and no new medications have been prescribed. He had taken amiodarone in the past for several months, but then had a recurrence of atrial fibrillation and that drug was discontinued and he had also developed some thyroid issues with that as well. PAST MEDICAL HISTORY: Coronary artery bypass. ALLERGIES: DILTIAZEM. HOME MEDICATIONS: Listed. No other new problems. SOCIAL HISTORY: Nonsmoker, nondrinker, physically active. FAMILY HISTORY: Unremarkable. REVIEW OF SYSTEMS: No other problems. OBJECTIVE: ENT: All within normal limits. NECK: No masses, nodes or bruits. LUNGS: Clear. CARDIOVASCULAR: Irregular rate consistent with sinus rhythm. No murmur or S3. ABDOMEN: Obese, soft, benign and nontender. EXTREMITIES: Good pedal and radial pulses. No joint or skin lesions. NEUROLOGIC: No focal findings. No tremors. Cranial nerves and mental status abnormalities. ASSESSMENT: Paroxysmal atrial fibrillation, currently in sinus rhythm after IV amiodarone. PLAN: Cardiology consultation to consider the need for further medications for atrial fibrillation prophylaxis such as sotalol or others to consider. SHARONA BEARD MD DR: NIKKI/trini JOB#: [id number] / [id number]
== END 2018-11-07 18:27 | disposition home or self-care (01) | DRG 310 ==
LOC: ER 20:32 → 2 SOUTH 21:11
PROVIDERS: ADMIT Family Medicine; ATTEND Family Medicine
DX: I48.0 Paroxysmal atrial fibrillation (principal); E66.9 Obesity, unspecified; E78.00 Pure hypercholesterolemia, unspecified; E78.5 Hyperlipidemia, unspecified; I10 Essential (primary) hypertension; I25.10 Atherosclerotic heart disease of native coronary artery without angina pectoris; Z82.49 Family history of ischemic heart disease and other diseases of the circulatory system; Z95.5 Presence of coronary angioplasty implant and graft; Z95.1 Presence of aortocoronary bypass graft; G62.9 Polyneuropathy, unspecified; M19.90 Unspecified osteoarthritis, unspecified site; Z90.49 Acquired absence of other specified parts of digestive tract; Z88.8 Allergy status to other drugs, medicaments and biological substances; Z68.37 Body mass index [BMI] 37.0-37.9, adult
CPT/HCPCS: 36415; 71045; 80053; 80061; 83036; 84443; 84484; 85025; 93005; 93306; 96365; J0282; 99285-25; G0378

== ENCOUNTER → 2019-07-05 | Outpatient (CLI) | payer MEDICARE ==
[~2019-07-05] MED LIST changes: +AMIO200T4 PO; +ASPI-612 PO; +LISI-338 PO; +METO25TA4 PO; +SIMV20TA18 PO; -SIMV20TA3 PO
--- NOTE | 2019-07-05 12:21 | RAD ---
MR#: [id number] Date of Study: 07/05/2019 Ordering Physician: CYNDIE QUINTERO, Referring Physician: CYNDIE QUINTERO, Tech: ERIN Hurst, RDMS, RTR APPROVED REPORT Patient Location: OUT-PATIENT Laterality:Bilateral Indications PVD, HTN Doppler Spectral Velocity Analysis Right Left pCCA 74/14 cm/spCCA 88/19 cm/s mCCA 79/20 cm/smCCA 53/15 cm/s dCCA 43/8 cm/sdCCA 45/12 cm/s pICA 45/10 cm/spICA 48/13 cm/s Geena 49/12 cm/smICA 64/26 cm/s dICA 34/17 cm/sdICA 52/24 cm/s ICA/CCA 0.62ICA/CCA 0.73 Findings Grayscale images of the bilateral common carotid, internal and external carotid vessels demonstrates mild intimal hyperplasia with diffuse luminal irregularities. Spectral waveforms and color Doppler a re within normal limits. Overall 0 to less than 50% stenosis. Bilateral ICA to CCA ratios are withi n normal limits. Bilateral vertebral velocities are antegrade. Critical Notification Critical Value: No <Conclusion> No significant carotid occlusive disease bilaterally Signed by : Cyndie Quintero, Electronically Approved : 07/05/2019 12:20:33
== END ==
LOC: US 10:31
PROVIDERS: ATTEND Internal Medicine Cardiovascular Disease
DX: I65.23 Occlusion and stenosis of bilateral carotid arteries (principal); I73.9 Peripheral vascular disease, unspecified; I10 Essential (primary) hypertension
CPT/HCPCS: 93880

== ENCOUNTER → 2020-04-13 | Outpatient (CLI) | payer MEDICARE ==
[~2020-04-13] MED LIST changes: -AMIO200T4 PO; +AMIO200T6 PO; -ASPI-612 PO; +ASPI-886 PO; -LISI-338 PO; +LISI-517 PO; +LISI10TA16 PO; -LISI10TA2 PO; +MULT-445 PO; -MULT1TAB52 PO; +PERFLUTREN PROTEIN-A MICROSPHR 0.22 MG/ML 3 ML VIAL. IV ONE
--- NOTE | 2020-04-13 14:20 | CARD ---
MR#: [id number] Date of Study: 04/13/2020 Ordering Physician: CYNDIE QUINTERO, Referring Physician: CYNDIE QUINTERO, Tech: Maame Greenberg [facility] APPROVED REPORT EXAM: Two-dimensional and M-mode echocardiogram with Doppler and color Doppler. Other Information Quality : Technically LimitedHR: 62bpm Rhythm : NSR INDICATION CAD Echo Enhancing Agent Indication: Endocardial border delineation Agent/Amount Used: Optison 4mL Surgery/Intervention CABG: RISK FACTORS Hypertension Obesity Hyperlipidemia 2D DIMENSIONS RVDd3.5 (2.9-3.5cm)Left Atrium(2D)4.7 (1.6-4.0cm) IVSd1.3 (0.7-1.1cm)Aortic Root(2D)3.7 (2.0-3.7cm) LVDd4.8 (3.9-5.9cm)LVOT Diameter2.3 (1.8-2.4cm) PWd1.3 (0.7-1.1cm)LVDs3.3 (2.5-4.0cm) FS (%) 32.1 %SV65.1 ml LVEF(%)60.2 (>50%) Aortic Valve AoV Peak Mata.111.2cm/sAoV VTI26.7cm AO Peak GR.4.9mmHgLVOT Peak Mata.93.9cm/s AO Mean GR.2mmHgAVA (VMAX)3.39cm2 Mitral Valve MV E Zrutqbop643.9cm/sMV DECEL NSHW500dt MV A Tqtqtkws28.9cm/sE/A Ratio2.1 LEFT VENTRICLE The left ventricle is normal size. There is mild concentric left ventricular hypertrophy. The left ve ntricular systolic function is normal and the ejection fraction is within normal range. Estimated eje ction fraction 50-55% There is normal LV segmental wall motion. Transmitral Doppler flow pattern is G rade II-pseudonormal filling dynamics. RIGHT VENTRICLE The right ventricle is normal size. There is normal right ventricular wall thickness. The right ventr icular systolic function is normal. ATRIA The left atrium size is normal. The right atrium size is normal. The interatrial septum is intact wit h no evidence for an atrial septal defect or patent foramen ovale as noted on 2-D or Doppler imaging. AORTIC VALVE The aortic valve is normal in structure and function. Doppler and Color Flow revealed no significant aortic regurgitation. There is no significant aortic valvular stenosis. MITRAL VALVE The mitral valve is normal in structure and function. There is no evidence of mitral valve prolapse. There is no mitral valve stenosis. Doppler and Color Flow revealed no mitral valve regurgitation note d. TRICUSPID VALVE The tricuspid valve is normal in structure and function. Doppler and Color Flow revealed no tricuspid valve regurgitation noted. There is no tricuspid valve stenosis. PULMONIC VALVE Doppler and Color Flow revealed no pulmonic valvular regurgitation. There is no pulmonic valvular abbe nosis. GREAT VESSELS The aortic root is mildly enlarged. The ascending aorta is normal in size. The IVC is normal in size and collapses >50% with inspiration. PERICARDIAL EFFUSION There is no evidence of significant pericardial effusion. Critical Notification Critical Value: No <Conclusion> The left ventricular systolic function is normal and the ejection fraction is within normal range. E stimated ejection fraction 50-55% There is normal LV segmental wall motion. Signed by : Cyndie Quintero, Electronically Approved : 04/13/2020 14:20:15
== END ==
LOC: ECHO 10:30
PROVIDERS: ATTEND Internal Medicine Cardiovascular Disease
DX: I51.7 Cardiomegaly (principal); I48.0 Paroxysmal atrial fibrillation
CPT/HCPCS: 93306; Q9956

== ENCOUNTER → 2021-05-17 | Outpatient (CLI) | payer MEDICARE ==
[2021-02-18 15:00] VITALS: BP 114/72
[~2021-05-17] MED LIST changes: +AMIO200T53 PO; -AMIO200T6 PO; +APIX5TAB PO; -LISI-517 PO; +LISI5TAB15 PO; +METO25TA2 PO; -PERFLUTREN PROTEIN-A MICROSPHR 0.22 MG/ML 3 ML VIAL. IV ONE
--- NOTE | 2021-05-18 07:56 | CARD ---
MR#: [id number] Date of Study: 05/17/2021 Ordering Physician: CYNDIE QUINTERO, Referring Physician: CYNDIE QUINTERO, Tech: Dimitri Munroe [facility] APPROVED REPORT EXAM: Two-dimensional and M-mode echocardiogram with Doppler and color Doppler. Other Information Quality : AverageHR: 60bpm Rhythm : NSRTechnically limited study due to body habitus. INDICATION Cardiac Disease: CAD RISK FACTORS Hypertension Hyperlipidemia 2D DIMENSIONS IVSd1.1 (0.7-1.1cm)LVDd5.4 (3.9-5.9cm) LVOT Diameter2.1 (1.8-2.4cm)PWd1.2 (0.7-1.1cm) LA Ohfdfu19 (18-58mL)LVDs3.5 (2.5-4.0cm) FS (%) 35.4 %SV89.8 ml LVEF(%)64.4 (>50%) Aortic Valve AoV Peak Mata.116.1cm/sAoV VTI21.5cm AO Peak GR.5.4mmHgLVOT Peak Mata.86.0cm/s LVOT VTI 21.74cmAO Mean GR.3mmHg AZUL (VMAX)1.29eq9CKZ (VTI)3.51cm2 Mitral Valve MV E Icwwfbhj61.3cm/sMV DECEL [id number] MV A Jjdfwyik89.2cm/sMV E Mean Gr.1mmHg MV DVB56ooG/A Ratio2.9 MVA (PHT)3.67cm2 TDI E/Lateral E'14.2E/Medial E'15.7 Pulmonary Valve PV Peak Ljivwbzg13.3cm/sPV Peak Grad.3mmHg Tricuspid Valve TR P. Fennpfto697fy/sTR Peak Gr.17mmHg Pulmonary Vein S1 Ktjylowk57.1cm/sD2 Fslkkxix06.1cm/s LEFT VENTRICLE The left ventricle is normal size. There is borderline concentric left ventricular hypertrophy. The l eft ventricular systolic function is normal and the ejection fraction is within normal range. EF 45% Septal motion suggestive of conduction defect. The apex is severely hypokinetic. Transmitral Doppler flow pattern is Grade II-pseudonormal filling dynamics. No left ventricle thrombus noted on this stud y. There is no ventricular septal defect visualized. There is no left ventricular aneurysm. There is no mass noted in the left ventricle. RIGHT VENTRICLE The right ventricle is normal size. There is normal right ventricular wall thickness. The right ventr icular systolic function is normal. ATRIA The left atrium is moderately dilated. The right atrium size is normal. The interatrial septum is int act with no evidence for an atrial septal defect or patent foramen ovale as noted on 2-D or Doppler i maging. AORTIC VALVE The aortic valve is normal in structure and function. Doppler and Color Flow revealed no significant aortic regurgitation. There is no significant aortic valvular stenosis. There is no aortic valvular v egetation. MITRAL VALVE The mitral valve is normal in structure and function. There is no evidence of mitral valve prolapse. There is no mitral valve stenosis. Doppler and Color-flow revealed trace to mild mitral regurgitation . TRICUSPID VALVE The tricuspid valve is normal in structure and function. Doppler and Color Flow revealed trace tricus pid regurgitation. The PA pressure was estimated at 30 mmHg. There is no tricuspid valve prolapse or vegetation. There is no tricuspid valve stenosis. PULMONIC VALVE Doppler and Color Flow revealed no pulmonic valvular regurgitation. There is no pulmonic valvular abbe nosis. GREAT VESSELS The aortic root is normal in size. The ascending aorta is normal in size. The IVC is normal in size a nd collapses >50% with inspiration. PERICARDIAL EFFUSION There is no pleural effusion. There is no evidence of significant pericardial effusion. Critical Notification Critical Value: No <Conclusion> The left ventricular systolic function is normal and the ejection fraction is within normal range. EF 45% Septal motion suggestive of conduction defect. The apex is severely hypokinetic. Signed by : Cyndie Quintero, Electronically Approved : 05/18/2021 07:56:10
--- NOTE | 2021-05-18 13:39 | RAD ---
MR#: [id number] Date of Study: 05/17/2021 Ordering Physician: CYNDIE BANDA, Referring Physician: NIKKY MAX Tech: DEVANG Cabello ARRT (R) (N) APPROVED REPORT Test Type: Exercise Stress Nurse/Tech: Anita Morin R.N. Test Indications: CAD Cardiac History: CABB, CAD, HTN Medications: Zocor Medical History: See Electronic Medical Record Resting ECG: SB w/ BBB, inverted T waves in leads AVR, AVL, V1&2 Resting Heart Rate: 48 bpm Resting Blood Pressure: 126/68mmHg Pretest Chest Pain: No chest pain Nurse/Tech Notes S1S2, lungs CTA Consent: The procedure was explained to the patient in lay terms. Informed consent was witnessed. Seth eout was entered into [employer]. History and Stress Test performed by SAMANTA Keith Stress Symptoms No chest pain or symptoms. POST EXERCISE Reason for Termination: Reached target heart rate Target HR: Yes Max HR: 130 bpm 102% of Maximum Predicted HR: 127 bpm Exercise duration: 7:00 min:sec, 3 Stage Exercise capacity: 10.0METs Max Blood Pressure: 195/90mmHg Blood Pressure response to exercise: Normal blood pressure response during stress. Heart Rate response to exercise: WNL Chest Pain: No. Arrhythmia: No. ST Change: No. INTERPRETATION Stress EKG Conclusion: Nondiagnostic stress EKG due to significant motion artifact Baseline EKG demonstrates sinus rhythm with first-degree AV block and right bundle branch block Imaging Protocol IMAGE PROTOCOL: Rest Tc-99m/stress Tc-99m 1 day Rest: Stress: Viability: Radiopharm.Tc99m VcmatkmzpMz72r Sestamibi Dose10.3mCi 32.8mCi Img Date 05/17/2021 05/17/2021 Inj-Img [id number]. 60min. Rest Admin Site:IV - Right AntecubitalAdministrator:DEVANG Cabello ARRT (R)(N) Stress Admin Site: IV - Right AntecubitalAdministrator: SAMANTA Keith STRESS DATA End Diast. Vol.98.0mlAv. Heart Rate56.0bpm End Syst. Vol.26.0mlCO Index BSA0.0L/min Myocardial Pimm947.0gEject. Xewnlqej44.0% Stress Rates Pk. Fill Rate2.42EDV/secLVtime Pk. Fill 231.73msec Pk. Empty Rate2.82ESV/secLVtime Pk. Qsqkp452.98msec 02/22 Pk. Fill1.08EDV/sec Stress Scores Regional WT0.00Summed WT5.00 Regional WM0.00Summed WM0.00 LV Perfusion There is a moderate sized severe in intensity fixed mid to distal anterior wall and apical perfusion defect consistent with prior infarct in the LAD territory without any obvious evidence of viability Wall Motion Apical hypokinesis with normal LV function, EF 70% LV Perf. Quant 17 Seg. SSS13.00 17 Seg. SRS14.00 17 Seg. SDS0.00 Stress Defect Extent (% LAD)45.60Rest Defect Extent (% LAD)48.80Rev. Defect Extent (% LAD)0.00 Stress Defect Extent (% LCX) 18.80Rest Defect Extent (% LCX)18.80Rev. Defect Extent (% LCX)0.00 Stress Defect Extent (% RCA)1.10Rest Defect Extent (% RCA)3.30Rev. Defect Extent (% RCA)0.00 Stress Defect Extent (% NORRIS)30.00Rest Defect Extent (% NORRIS)32.40Rev. Defect Extent (% NORRIS)0.00 Other Information Quality:Average Risk Assessment: Moderate-High Risk Conclusion 1. Nondiagnostic stress EKG due to significant motion artifact. Grossly no evidence of ischemia 2. Fixed mid to distal anterior wall and apical perfusion defect consistent with prior LAD territory infarct without active ischemia 3. Normal EF at greater than 70% 4. Moderate to high risk for future cardiovascular event Signed by : Cyndie Banda, Electronically Approved : 05/18/2021 13:38:49
== END ==
LOC: NM 08:04
PROVIDERS: ATTEND Internal Medicine Cardiovascular Disease
DX: I34.0 Nonrheumatic mitral (valve) insufficiency (principal); I51.9 Heart disease, unspecified; I25.10 Atherosclerotic heart disease of native coronary artery without angina pectoris; I48.0 Paroxysmal atrial fibrillation
CPT/HCPCS: 78452; 93017; 93306; A9500; C8929